=== PATIENT | male | born 1975 | race Caucasian/White ===

== ENCOUNTER 2022-05-31 07:20 | Day surgery (SDC) | payer OTHER ==
[~2022-05-31] VITALS: Ht 180.3 cm; Wt 88.0 kg
[2022-05-31 07:34] LABS: HEMATOCRIT 44.4 % (39.0-50.0); HEMOGLOBIN 15.5 g/dl (14.0-18.0); IMMATURE GRANULOCYTES 0.2 % (0.0-5.0); MEAN CELL VOLUME 98.2 fL CALC (80.0-100.0); MEAN CORPUSCULAR HGB 34.3 pG CALC (26.0-32.0); MEAN CORPUSCULAR HGB CONC 34.9 g/dL CAL (32.0-36.0); NEUT# 6.28 thou/uL (1.82-7.42); RED BLOOD COUNT 4.52 mill/uL (4.70-6.10); RED CELL DISTRI WIDTH 12.4 % (11.5-15.5)
[2022-05-31 08:26] LABS: ALBUMIN 4.1 g/dL (3.2-5.0); ALKALINE PHOSPHATASE 62 u/l (38-126); ANION GAP 11 (6-22 (CALC)); BILIRUBIN, TOTAL 0.4 mg/dL (0.0-1.4); BUN 15 mg/dL (9-20); BUN/CREATININE RATIO 16 (12-20 (CALC)); CARBON DIOXIDE 29 mmol/l (22-30); CHLORIDE 105 mmol/l (95-108); GFR FOR AFR.AMER. > 60 ML/MIN (>=60 (CALC)); GFR OTHER RACES > 60 ML/MIN (>=60 (CALC)); POTASSIUM 4.6 mmol/l (3.5-5.1); SGOT/AST 38 u/l (17-59); SODIUM 141 mmol/l (137-146)
[2022-05-31] MEDS ORDERED: NALTREXONE50 MG PO (15:00)
[2022-05-31] MEDS ORDERED: KLONOPIN2 MG PO (15:01)
[2022-05-31] MEDS ORDERED: CLONIDINE0.1 MG PO (15:01)
[2022-05-31 20:19] VITALS: BP 120/60
[2022-05-31 22:36] VITALS: BP 132/73
[2022-06-01 03:40] VITALS: BP 145/88
[2022-06-01 07:14] VITALS: BP 135/79
[2022-06-01 07:52] VITALS: BP 135/79
[2022-06-01 07:53] LABS: HEMATOCRIT 41.7 % (39.0-50.0); IMMATURE GRANULOCYTES 0.3 % (0.0-5.0); MEAN CELL VOLUME 95.4 fL CALC (80.0-100.0); MEAN CORPUSCULAR HGB 34.3 pG CALC (26.0-32.0); NEUT# 16.59 thou/uL (1.82-7.42); RED BLOOD COUNT 4.37 mill/uL (4.70-6.10)
[2022-06-01 08:07] LABS: ALBUMIN 4.1 g/dL (3.2-5.0); ALKALINE PHOSPHATASE 55 u/l (38-126); ANION GAP 16 (6-22 (CALC)); BILIRUBIN, TOTAL 0.5 mg/dL (0.0-1.4); BUN 15 mg/dL (9-20); BUN/CREATININE RATIO 23 (12-20 (CALC)); CARBON DIOXIDE 24 mmol/l (22-30); CHLORIDE 107 mmol/l (95-108); CREATININE 0.7 mg/dL (0.7-1.3); GFR FOR AFR.AMER. > 60 ML/MIN (>=60 (CALC)); GFR OTHER RACES > 60 ML/MIN (>=60 (CALC)); SGOT/AST 38 u/l (17-59); SODIUM 143 mmol/l (137-146); TOTAL PROTEIN 6.9 g/dL (6.3-8.2)
[2022-06-01 08:08] LABS: POTASSIUM 3.6 mmol/l (3.5-5.1)
== END 2022-06-01 14:44 | disposition home or self-care (01) | DRG 897 ==
LOC: ANR 07:20 → MS2 07:20 → ANR 06-01 14:44
PROVIDERS: ATTEND Anesthesiology Critical Care Medicine
DX: F11.20 Opioid dependence, uncomplicated (principal)
CPT/HCPCS: J2354